=== PATIENT | male | born 1990 | race African-American/Black ===

== ENCOUNTER 2022-01-02 12:11 | Emergency (ER) | payer MEDICAID, SELFPAY | END 2022-01-02 14:20 | disposition home or self-care (01) | LOC: CSHERS 12:11 | DX: S62.316A Displaced fracture of base of fifth metacarpal bone, right hand, initial encounter for closed fracture (principal); W22.8XXA Striking against or struck by other objects, initial encounter | CPT/HCPCS: 29125 ==